=== PATIENT | male | born 1990 | race African-American/Black ===

== ENCOUNTER 2018-08-16 22:07 | Emergency (ER) | payer MEDICAID, SELFPAY ==
[2018-08-16 22:11] VITALS: BP 151/84; PULSE 103; RESP 20; TEMP 38.5; O2SAT 96
[2018-08-16 22:15] VITALS: RESP 18
--- NOTE | 2018-08-16 22:19 | DI.RAD_ITS ---
SYMPTOMS/DIAGNOSIS: COUGH PA AND LATERAL CHEST: No priors. The heart is normal in size. The lungs are clear. The mediastinal structures and pleura appear intact. CONCLUSION: Normal chest.
--- NOTE | 2018-08-16 22:22 | ED.GENADUL_ITS ---
Discharge Plan Disposition Patient Disposition: HOME Condition: Improving Discharge Details Chief Complaint: GenMedical Clinical Impression: Pneumonia Primary Care Provider: Dallin Quintana ED Provider: Nestor Li Home Meds and New Rx's Prescriptions: New cefdinir 300 mg capsule 300 mg PO Q12H 10 Days Qty: 20 RF: 0 Discharge Instructions Instructions: Pneumonia (ED) Additional Instructions: Please call your doctor's office to obtain a follow-up appointment for 7-10 days time. Take medications as prescribed with antibiotic administration beginning tomorrow morning Home to rest. Small, frequent sips of fluids to maintain hydration. May use Tylenol and/or ibuprofen as needed for discomfort. Return to the emergency department if you develop shortness of breath, or any other acute concerns Medical Decision Making 28-year-old male presents with 2 weeks of upper respiratory illness associated with cough, congestion, general malaise, fever and chills. He has had ear congestion with diminished hearing on the left as well as posttussive lower abdominal pain. He arrives with a temperature of 38.5, pulse 103. He has coarse rhonchi throughout his lung bang. Differential diagnosis includes pneumonia, bronchitis, post viral pneumonitis. Patient given 1 L fluid bolus, ketorolac, referred for laboratory testing and chest x-ray. He is given parenteral antibiotics in the emergency department. Patient's had some improvement with these interventions. His diagnostic studies reveal white blood cell count of 13, discrete low potassium of 3.3. Chest x-ray preliminarily read by radiology as unremarkable, I do feel that there is a developing left retrocardiac infiltrate Will place a course of oral antibiotics. He stable, improved, appropriate to be discharged home. Lab Data Lab results reviewed: Yes I reviewed the patient's lab results. Laboratory Results - last 24 hr 08/16/18 08/16/18 22:35 22:35 WBC 13.53 H RBC 4.75 Hgb 12.8 L Hct 36.6 L MCV 77.1 L MCH 26.9 L MCHC 35.0 RDW 13.6 Plt Count 247 MPV 9.7 Immature Gran % 0.3 Neutrophils % 70.7 Lymphocytes % 20.2 Monocytes % 7.9 Eosinophils % 0.7 Basophils % 0.2 Absolute Neutrophils 9.57 H Absolute Lymphocytes 2.73 Absolute Monocytes 1.07 H Absolute Eosinophils 0.09 Absolute Basophils 0.03 Sodium 138 Potassium 3.3 L Chloride 100 Carbon Dioxide 29.2 Anion Gap 8.8 BUN 10 Creatinine 1.02 Estimated GFR/1.73 m2 >= 60.00 Glucose 97 Calcium 9.4 HPI General Mode of arrival: ambulatory . Date/Time Provider Initiated Documentation: 08/16/18 22:11 . Limitations to Documentation: no limitations . Information obtained by: patient . History of Present Illness 28 year old M presents to the emergency department with the chief complaint of Cough, described as moderate, Quality is described as constant, and is localized to the chest. Patient reports no radiation. Patient started experiencing this day(s) and it has been constant. No relieving factors improve symptom(s), Other factors that worsen symptoms (Cough) . Patient notes cough, fever/chills, loss of appetite, malaise and other (Pain in lower abdomen with coughing. No persistent pain without coughing. Decreased hearing left). Patient did receive the following treatments prior to arrival, none Related Data Home Medications Medication Instructions Recorded Confirmed cefdinir 300 mg PO Q12H 10 Days #20 cap 08/16/18 Previous Rx's Medication Instructions Recorded cefdinir 300 mg PO Q12H 10 Days #20 cap 08/16/18 Allergies Allergy/AdvReac Type Severity Reaction Status Date / Time No Known Allergies Allergy Unverified 08/16/18 22:14 General Stated Complaint: GenMedical SERGIO: 3 Review of Systems Review of Systems 6 systems reviewed and otherwise negative PFSH Social History Smoking/Tobacco Use Status: Never Exam Narrative Exam Narrative: GEN: awake, alert, oriented 3. Pleasant, well groomed, interactive. HEAD: Normocephalic, atraumatic ENT: Mucous membranes moist, oropharynx unremarkable, External ear exam unremarkable EYES: PERRL, EOMI NECK: Full ROM, no VICK, no menigismus CHEST/RESP: Nontender, bilateral coarse rhonchi CARDIOVASCULAR: Regular and tachycardic, no murmur, rub roxy. 2+ Rad pulse bilateral ABDOMEN: Soft, nontender, no mass. +Bowel sounds EXT: Full ROM, no edema, no rash Neuro: Grossly normal neurologic exam, conversant, interactive. Psych: Speech fluent, thoughts congruent, affect normal Course Vital Signs Temperature 38.5 C H 08/16/18 22:11 Pulse 103 H 08/16/18 22:11 Respiratory Rate 20 08/16/18 22:11 Blood Pressure 151/84 H 08/16/18 22:11 Pulse Oximetry 96 08/16/18 22:11 Temperature 38.5 C H 08/16/18 22:11 Temperature Source Temporal Artery Scan 08/16/18 22:11 Pulse 103 H 08/16/18 22:11 Respiratory Rate 18 08/16/18 22:15 Respiratory Effort Non-Labored 08/16/18 22:15 Respiratory Depth Normal 08/16/18 22:15 Respiratory Pattern Normal 08/16/18 22:15 Blood Pressure 151/84 H 08/16/18 22:11 Pulse Oximetry 96 08/16/18 22:11 Oxygen Delivery Method Room Air 08/16/18 22:11 Oxygen Flow Rate 0 08/16/18 22:11 Pain Level 7 08/16/18 22:11
[2018-08-16] MEDS: Ketorolac 30 MG/ML VIAL IVP (22:25)
[2018-08-16 22:40] LABS: Abs Immature Grans 0.04 k/cumm (0.0-0.09); Absolute Basophil Count 0.03 k/cumm (0.0-0.2); Absolute Eosinophil Count 0.09 k/cumm (0.0-0.7); Absolute Lymphocyte Count 2.73 k/cumm (1.2-3.4); Absolute Monocyte Count 1.07 k/cumm (0.11-0.7); Absolute Neutrophil Count 9.57 k/cumm (1.2-6.7); Basophils % 0.2; Eosinophils % 0.7; HCT 36.6 % (40.0-50.0); HGB 12.8 g/dL (13.5-17.5); Immature Grans % 0.3; Lymphocytes % 20.2; Mean Corpuscular Hemoglobin 26.9 pg (27.0-33.0); Mean Corpuscular Volume 77.1 fL (80-95); Mean Platelet Volume 9.7 fL (8.0-11.0); Monocytes % 7.9; Neutrophils % 70.7; Platelet Count 247 x1000/uL (130-400); RBC 4.75 m/cumm (4.50-6.00); RBC Distribution Width 13.6 % (11.8-14.1); White Blood Cell Count 13.53 k/cumm (4.4-10.8)
[2018-08-16 22:47] LABS: Anion Gap 8.8 mmol/L (3-11); BUN 10 mg/dL (7-18); CO2 29.2 mmol/L (21.0-32.0); CREATININE 1.02 mg/dL (0.70-1.30); Calcium 9.4 mg/dL (8.5-10.1); Chloride 100 mmol/L (98-107); Glucose 97 mg/dL (70-100); Potassium 3.3 mmol/L (3.5-5.1); Sodium 138 mmol/L (136-145)
[2018-08-16] MEDS: Normal Saline 1,000 ML 1000 ML IV (22:54)
--- NOTE | 2018-08-16 23:16 | DI.VRAD_ITS ---
EXAM: XR Chest, 2 Views EXAM DATE/TIME: 08/16/2018 10:21 PM CLINICAL HISTORY: 28 years old, male; Signs and symptoms; Cough; Patient HX: Per PT: Cough 2 weeks TECHNIQUE: XR of the chest, 2 views. COMPARISON: No relevant prior studies available. FINDINGS: Lungs: Unremarkable. No consolidation. Pleural space: Unremarkable. No pleural effusion. No pneumothorax. Heart/Mediastinum: Unremarkable. No cardiomegaly. Bones/joints: Unremarkable. IMPRESSION: No acute findings. Dictated and Authenticated by: Kiran Najera MD. Ordering:ROSALINDA SANCHEZ MD
[2018-08-17 06:36] VITALS: BP 151/84; PULSE 103; RESP 18; TEMP 38.5; O2SAT 96
== END 2018-08-16 23:29 | disposition home or self-care (01) ==
LOC: ER 23:32
PROVIDERS: Emergency Provider Emergency Medicine; PCP Nurse Practitioner
DX: J18.9 Pneumonia, unspecified organism (principal); E87.6 Hypokalemia
CPT/HCPCS: 36415; 80048; 96365; 96374; 96375; 99284; 71046; 85025; J0696; J1885

== ENCOUNTER 2019-09-16 07:39 | Emergency (ER) | payer MEDICAID, SELFPAY ==
[2019-09-16 07:44] VITALS: BP 141/85; PULSE 110; RESP 18; TEMP 36.4; O2SAT 99
--- NOTE | 2019-09-16 07:51 | DI.RAD_ITS ---
EXAM: XR SHOULDER RT COMPLETE 2+V CLINICAL HISTORY: right shoulder pain TECHNIQUE: COMPARISON: No exams were available for comparison FINDINGS: Five views were obtained. No bony or soft tissue abnormality seen. IMPRESSION:
--- NOTE | 2019-09-16 07:51 | ED.GENADUL_ITS ---
Discharge Plan Disposition Patient Disposition: HOME Condition: Stable Discharge Details Chief Complaint: Orthopedic Clinical Impression: Pain in right shoulder Primary Care Provider: Marybeth Edwards ED Provider: Mauro Florence Home Meds and New Rx's Prescriptions: No Action No Known Home Meds RF: 0 Discharge Instructions Instructions: Shoulder Pain (ED) Additional Instructions: take 1000mg tylenol and 600mg ibuprofen every 6 hours for pain as needed take your arm out of the sling a few times a day to range your joints if still in pain in a week see your primary care provider return to the emergency department for fevers, swelling or severe worsening pain Medical Decision Making 29 yo male who denies chronic medical problems, denies alcohol or drug use, comes in with right shoulder pain. He states he went to bed feeling well and woke up with pain in the right shoulder with movement. Denies fevers, chills, falls, trauma, no chest pain or shortness of breath. He has pain with palpation to the anterior shoulder on the right with no visible deformity or palpable deformity and has intact distal sensation and pulses. Could be bursitis, no warmth or erythema to suggest septic joint. Will xray to eval for possible fx xray on my read and Dr. Amor from radiology negative for acute pathology. He is feeling better and only has pain with rom, I am able to passively fully range so odubt septic joint or psoterio shoulder dislocation. Suspect bursitis vs strain. Will place in sling and have him f/u with pcp, return precautions given Differential Diagnosis Differential Diagnosis: bursitis, fracture, dislocation Imaging Data Radiologic Study: Attestation: I personally reviewed and interpreted this imaging study as follows: Imaging: X-Ray Radiologist's impression: no acute findings HPI General Mode of arrival: ambulatory . Date/Time Provider Initiated Documentation: 09/16/19 07:48 . Limitations to Documentation: no limitations . Information obtained by: patient . History of Present Illness 29 year old M presents to the emergency department with the chief complaint of right shoulder pain, described as moderate, Quality is described as aching, Patient reports no radiation. Patient started experiencing this hour(s) (2) and it has been constant. No relieving factors improve symptom(s), No exacerbating factors reported . Patient did receive the following treatments prior to arrival, none Related Data Home Medications Medication Instructions Recorded Confirmed Unknown [No Known Home Meds] 09/16/19 09/16/19 Allergies Allergy/AdvReac Type Severity Reaction Status Date / Time No Known Allergies Allergy Unverified 09/16/19 07:47 General Stated Complaint: Orthopedic SERGIO: 3 Review of Systems All systems reviewed & are unremarkable except as noted in HPI and below Constitutional Constitutional: Denies chills, Denies fever(s) and Denies weakness Cardiovascular Cardiovascular: Denies chest pain and Denies dyspnea Respiratory Respiratory: Denies dyspnea Gastrointestinal Gastrointestinal: Denies abdominal pain, Denies nausea and Denies vomiting Musculoskeletal Musculoskeletal: Denies joint swelling Neurologic Neurologic: Denies weakness Endocrine Endocrine: Denies heat intolerance PFSH Social History Smoking/Tobacco Use Status: Never Drug use: Never Substance use type: does not use Do you feel safe in your relationship?: Yes Exam Const General: no acute distress Orientation: alert HENMT Head: normal to inspection Ears: external ears normal General nose exam: external nose normal Mouth: moist mucous membranes Eyes General: appearance normal, both eyes and all related structures Neck Neck: normal visual inspection Resp Effort & Inspection: normal respiratory effort and able to speak in complete sentences Cardio Rate: regular rate Skin General skin exam: no rashes or lesions noted Neuro General: alert and oriented x3 Extrem General: normal to inspection Psych Mental Status: mental status grossly normal Course Vital Signs Vital signs: Vital Signs Temperature 36.4 C L 09/16/19 07:44 Pulse 110 H 09/16/19 07:44 Respiratory Rate 18 09/16/19 07:44 Blood Pressure 141/85 H 09/16/19 07:44 Pulse Oximetry 99 09/16/19 07:44 Temperature 36.4 C L 09/16/19 07:44 Temperature Source Oral 09/16/19 07:44 Pulse 110 H 09/16/19 07:44 Respiratory Rate 18 09/16/19 07:44 Respiratory Effort 09/16/19 07:47 Blood Pressure 141/85 H 09/16/19 07:44 Blood Pressure Position Sitting 09/16/19 07:44 Pulse Oximetry 99 09/16/19 07:44 Oxygen Delivery Method Room Air 09/16/19 07:44 Oxygen Flow Rate 0 09/16/19 07:44 Pain Level 8 09/16/19 07:44
[2019-09-16] MEDS: Ibuprofen 600 MG TAB PO (07:57)
[2019-09-16 08:30] VITALS: BP 141/85; PULSE 110; RESP 18; TEMP 36.4; O2SAT 99
== END 2019-09-16 08:33 | disposition home or self-care (01) ==
PROVIDERS: Emergency Provider Emergency Medicine; PCP Nurse Practitioner Family
DX: M25.511 Pain in right shoulder (principal)
CPT/HCPCS: 99283; 73030; 99282; L3650

== ENCOUNTER 2021-01-10 09:53 | Outpatient (REF) | payer MEDICAID, SELFPAY ==
[2021-01-10 15:06] LABS: HCT 38.6 % (40.0-50.0); MCH 26.4 pg (27.0-33.0); MCHC 33.7 % (32.0-36.0); MCV 78.3 fL (80-95); Platelet Count 266 10^3/uL (130-400); RBC 4.93 10^6/uL (4.36-5.78); RDW 13.2 % (11.8-14.1); RDW-SD 37.5 fL; WBC 6.75 10^3/uL (4.4-10.8)
[2021-01-10 15:30] LABS: ALT 28 U/L (16-63); AST 24 U/L (15-37); Albumin 4.1 g/dL (3.4-5.0); Alkaline Phosphatase 79 U/L (46-116); Anion Gap 8.7 mmol/L (3-11); BUN 10 mg/dL (7-18); Bilirubin, Total 0.6 mg/dL (0.2-1.0); CO2 31.3 mmol/L (21.0-32.0); Calcium 9.5 mg/dL (8.5-10.1); Chloride 103 mmol/L (98-107); Glucose 92 mg/dL (74-106); Potassium 3.6 mmol/L (3.5-5.1); Sodium 143 mmol/L (136-145); Total Protein 8.6 g/dL (6.4-8.2)
== END 2021-01-10 09:54 | disposition home or self-care (01) ==
LOC: NCHCN 09:53
PROVIDERS: PCP Nurse Practitioner Family; Visit Provider Nurse Practitioner Family
DX: F41.8 Other specified anxiety disorders (principal); Z00.00 Encounter for general adult medical examination without abnormal findings
CPT/HCPCS: 80053; 85027

== ENCOUNTER 2023-12-23 21:49 | Emergency (ER) | payer MEDICAID, SELFPAY ==
[2023-12-23] VITALS (23 sets, daily range): BP systolic 128–174; BP diastolic 59–111; PULSE 93–123; RESP 14–22; TEMP 36.8–38.5; O2SAT 95–100
--- NOTE | 2023-12-23 21:45 | RT.EKG_ITS ---
APPROVED REPORT Exam: Resting ECG Reason for Exam: chest pain Patient Location: E HR:93 bpm ECG Measurements Heart Rate 93 AXIS MN 117 P 78 QRSd 97 QRS 54 QT 304 T 9 QTc 378 Conclusion Sinus rhythm at a rate of 93 with wandering leads, motion artifact change without acute ischemic jay ge.
[2023-12-23] MEDS: methylPREDNISolone SUCC 125 MG VIAL IVP (22:24)
[2023-12-23 22:25] LABS: Abs Immature Grans 0.07 10^3/uL (0.0-0.06); Absolute Basophil Count 0.04 10^3/uL (0.0-0.2); Absolute Eosinophil Count 0.13 10^3/uL (0.0-0.7); Absolute Monocyte Count 1.28 10^3/uL (0.1-0.8); Basophils % 0.3; Eosinophils % 0.9; HCT 35.4 % (40.0-50.0); HGB 11.8 g/dL (13.5-17.5); Immature Grans % 0.5; Lymphocytes % 16.8; MCH 24.4 pg (27.0-33.0); MCHC 33.3 % (32.0-36.0); MCV 73 fL (80-95); MPV 9.8 fL (8.0-11.0); Monocytes % 8.6; Neutrophils % 72.9; Platelet Count 245 10^3/uL (130-400); RBC 4.83 10^6/uL (4.36-5.78); RDW 13.4 % (11.8-14.1); RDW-SD 35.6 fL; WBC 14.91 10^3/uL (4.4-10.8)
[2023-12-23] MEDS: Normal Saline 1,000 ML 1000 ML IV (22:27)
[2023-12-23] MEDS: Ketorolac 15 MG/ML VIAL 7.5 MG IVP (22:27)
[2023-12-23] MEDS: Albuterol 2.5 MG/3 ML INH SOLN VIAL UPD (22:27)
[2023-12-23 22:38] LABS: Absolute Neutrophil Count 10.87 10^3/uL (1.2-6.7)
[2023-12-23 22:39] LABS: Diff Comment RBC Morph Reviewed; Hypochromasia 1+; Microcytosis 1+
[2023-12-23 22:41] LABS: Creatine Kinase 294 U/L (39-308); Lipase 32 U/L (16-77); Troponin I < 50 ng/L (< or =60)
--- NOTE | 2023-12-23 22:45 | DI.RAD_ITS ---
Exam(s) XR CHEST 2V PA LATERAL EXAM: XR CHEST 2V PA LATERAL CLINICAL HISTORY: chest pain and fever TECHNIQUE: 2D digital imaging was performed of the chest. Two images were obtained. PA and lateral views were obtained. COMPARISON: CR XR CHEST 2V PA LATERAL from 08/16/2018 FINDINGS: MEDIASTINUM: Normal. HEART: Normal. PULMONARY VASCULATURE: Normal. LUNGS: Clear. PLEURAL SPACE: No pleural effusion or pneumothorax. BONE:Within normal limits for the patient's age. OTHER FINDINGS:Normal. IMPRESSION: No acute pulmonary findings. DATA REPOSITORY: RADIATION DOSE DELIVERED:
[2023-12-23 22:49] LABS: ALT 34 U/L (16-63); AST 24 U/L (15-37); Albumin 3.8 g/dL (3.4-5.0); Alkaline Phosphatase 90 U/L (46-116); Anion Gap 8.2 mmol/L (3-11); BUN 11 mg/dL (7-18); Bilirubin, Total 0.5 mg/dL (0.2-1.0); CO2 29.8 mmol/L (21.0-32.0); CREATININE 1.1 mg/dL (0.70-1.30); Calcium 9.4 mg/dL (8.5-10.1); Chloride 102 mmol/L (98-107); Estimated GFR 89.78 (mL/min/1.73m2); Glucose 110 mg/dL (74-106); Potassium 3.7 mmol/L (3.5-5.1); Sodium 140 mmol/L (136-145); Total Protein 8.7 g/dL (6.4-8.2)
[2023-12-23] MEDS: ACETAMINOPHEN 1,000 MG/100 ML BTL 400 MG IVPB (22:50)
[2023-12-23 23:01] LABS: COVID-19 PCR Negative (Negative); Influenza A PCR Negative (Negative); Influenza B PCR Negative (Negative); RSV PCR Negative (Negative)
[2023-12-23 23:02] LABS: Source NASOPHARYNX
--- NOTE | 2023-12-23 23:36 | W.ED.GENAD ---
Discharge Plan Disposition Patient Disposition: Home Condition: Stable Discharge Details Clinical Impression: Acute viral syndrome, Chest pain Primary Care Provider: Unknown,Unknown ED Provider: Sussy Rosas Home Meds and New Rx's Prescriptions: No Action No Known Home Meds Discharge Instructions Instructions: Chest Pain (ED), Viral Syndrome (ED) Additional Instructions: Take ibuprofen 600 mg every 8 hours with food Take Tylenol 650 mg every 4-6 hours At least 8 ounce glasses of water daily Rest Please be reevaluated by your primary care physician in 24 to 48 hours and return earlier should you have new or worsening complaints Discharge Data Discharge Date/Time-TO BE ENTERED AT DEPARTURE: 12/24/23 02:03 HPI <ZULEMA Clark - Last Filed: 12/25/23 08:27> General Date/Time Provider Initiated Documentation: 12/23/23 21:51. HPI Narrative: This 33-year-old male presents with fever, chills, myalgias, chest pain, and shortness of breath. He denies any known sick contacts but does live with 3 kids and his . States his symptoms started 3 days ago with chest pain. He denies any localized pain to his calves. He denies any hemoptysis. He has had chills but has not taken his temperature. Denies exotic travel or rashes. Denies any urinary symptoms. Denies shortness of breath. Does not endorse any history of coagulopathy, recent flights, surgeries, long drives. Parents and siblings otherwise reportedly healthy. Does not smoke, drink, or use any illicit drugs. Related Data Home Medications Medication Instructions Recorded Confirmed Unknown [No Known Home Meds] 09/16/19 12/23/23 Allergies Allergy/AdvReac Type Severity Reaction Status Date / Time No Known Allergies Allergy Unverified 12/23/23 21:54 General Stated Complaint: Fever SERGIO: 3 Course <ZULEMA Clark - Last Filed: 12/25/23 08:27> Vital Signs Vital signs: Vital Signs Temperature 38.5 C H 12/23/23 21:55 Pulse 108 H 12/23/23 21:55 Respiratory Rate 18 12/23/23 21:55 Blood Pressure 168/101 H 12/23/23 21:55 Pulse Oximetry 95 12/23/23 21:55 Temperature 38.5 C H 12/23/23 21:55 Temperature Source Temporal Artery Scan 12/23/23 21:55 Pulse 108 H 12/23/23 21:55 Respiratory Rate 18 12/23/23 21:55 Respiratory Effort Normal, Non-Labored 12/23/23 21:57 Blood Pressure 168/101 H 12/23/23 21:55 Blood Pressure Position Sitting 12/23/23 21:55 Pulse Oximetry 95 12/23/23 21:55 Oxygen Delivery Method Room Air 12/23/23 21:55 Oxygen Flow Rate 0 12/23/23 21:55 Pain Level 9 12/23/23 21:55 Lab/Test Results Lab/Test Results: 12/23/23 23:14 Blood Blood Culture - Pending 12/23/23 23:14 Blood Blood Culture - Pending Laboratory Tests Range/Units 12/23/23 22:04 WBC (4.4-10.8) 10^3/uL 14.91 H RBC (4.36-5.78) 10^6/uL 4.83 Hgb (13.5-17.5) g/dL 11.8 L Hct (40.0-50.0) % 35.4 L MCV (80-95) fL 73 L MCH (27.0-33.0) pg 24.4 L MCHC (32.0-36.0) % 33.3 RDW (11.8-14.1) % 13.4 Plt Count (130-400) 10^3/uL 245 MPV (8.0-11.0) fL 9.8 Immature Gran % 0.5 Neutrophils % 72.9 Lymphocytes % 16.8 Monocytes % 8.6 Eosinophils % 0.9 Basophils % 0.3 Nucleated RBC % (0.0-0.3) % 0.0 Absolute Neutrophils (1.2-6.7) 10^3/uL 10.87 H Absolute Lymphocytes (1.2-3.4) 10^3/uL 2.50 Absolute Monocytes (0.1-0.8) 10^3/uL 1.28 H Absolute Eosinophils (0.0-0.7) 10^3/uL 0.13 Absolute Basophils (0.0-0.2) 10^3/uL 0.04 RBC Morphology See Below Hypochromasia 1+ Microcytosis 1+ Sodium (136-145) mmol/L 140 Potassium (3.5-5.1) mmol/L 3.7 Chloride (98-107) mmol/L 102 Carbon Dioxide (21.0-32.0) mmol/L 29.8 Anion Gap (3-11) mmol/L 8.2 BUN (7-18) mg/dL 11 Creatinine (0.70-1.30) mg/dL 1.1 Est GFR (CKD-EPI 2020) (mL/min/1.73m2) 89.78 Glucose (74-106) mg/dL 110 H Calcium (8.5-10.1) mg/dL 9.4 Total Bilirubin (0.2-1.0) mg/dL 0.5 AST (15-37) U/L 24 ALT (16-63) U/L 34 Alkaline Phosphatase (46-116) U/L 90 Creatine Kinase (39-308) U/L 294 Troponin I (< or =60) ng/L < 50 Total Protein (6.4-8.2) g/dL 8.7 H Albumin (3.4-5.0) g/dL 3.8 Lipase (16-77) U/L 32 COVID-19 Source NASOPHARYNX SARS-CoV-2 (PCR) (Negative) Negative Influenza Type A (PCR) (Negative) Negative Influenza Type B (PCR) (Negative) Negative RSV (PCR) (Negative) Negative Medical Decision Making <ZULEMA Clark - Last Filed: 12/25/23 08:27> This 33-year-old male presents with report of fever, chills, chest pain, cough Patient appears well, vitals are stable, he is febrile at 38.5, initially patient with myalgias and flulike symptoms so surgery was ordered, this is negative so I will order chest x-ray, blood cultures, lactate, white count of 14,000, urinalysis pending Patient alert, oriented, no signs of meningismus, no rashes or lesions, reproducible chest wall pain, initial troponin negative, CPK negative, will order repeat EKG secondary to onset of sinus tachycardia or suspected sinus tachycardia after albuterol administration, patient did not have much relief with this I suspect this is a viral syndrome but will also order D-dimer secondary to tachycardia and chest pain, care will be transitioned to Dr. Ifrah Álvarez pending repeat troponin at 0100, D-dimer, chest x-ray versus CT scan, urinalysis, second liter of IV fluids, and reassessments Patient has remained quite stable in appearance throughout this encounter and I suspect the tachycardia is related to the albuterol as a started this albuterol administration, I do not think patient would benefit from albuterol at home Quality:[facility] Health Related Social Needs: No Data to Display <Hellen Álvarez, - Last Filed: 12/24/23 02:00> This 33-year-old male presents with report of fever, chills, chest pain, cough Patient appears well, vitals are stable, he is febrile at 38.5, initially patient with myalgias and flulike symptoms so surgery was ordered, this is negative so I will order chest x-ray, blood cultures, lactate, white count of 14,000, urinalysis pending Patient alert, oriented, no signs of meningismus, no rashes or lesions, reproducible chest wall pain, initial troponin negative, CPK negative, will order repeat EKG secondary to onset of sinus tachycardia or suspected sinus tachycardia after albuterol administration, patient did not have much relief with this I suspect this is a viral syndrome but will also order D-dimer secondary to tachycardia and chest pain, care will be transitioned to Dr. Ifrah Álvarez pending repeat troponin at 0100, D-dimer, chest x-ray versus CT scan, urinalysis, second liter of IV fluids, and reassessments Patient has remained quite stable in appearance throughout this encounter and I suspect the tachycardia is related to the albuterol as a started this albuterol administration, I do not think patient would benefit from albuterol at home I received signout regarding this patient. We were awaiting blood work result at this point. Lactic acid is back and is within normal limits. D-dimer is likewise within normal limits. Repeat troponin is likewise resulted and it continues to be unremarkable. The patient's fever in the meantime has since resolved. Patient now feels very hot versus cold and chilled. Tachycardia has also resolved. I have updated the patient on workup result and of plan for discharge. I suspect the patient has a viral illness causing his symptoms. At this point I told the plan for discharge. He is encouraged to continue Tylenol and ibuprofen back to back, follow-up with his primary care doctor and return to the emergency department with any worsening symptoms or any other concerns. Chest x-ray had been done also which showed as interpreted by virtual radiology: No acute thoracic process. PFSH <ZULEMA Clark - Last Filed: 12/25/23 08:27> All Active Problems (Updated 12/23/23 @ 23:51 by ZULEMA Clark) Chest pain (Acute) Acute viral syndrome (Acute) Social History Smoking/Tobacco Use Status: Never Smoking risk assessment performed?: Yes Alcohol Intake: never Drug use: Never Substance use type: does not use Housing: house Do you feel safe at home: Yes Do you feel safe in your relationship?: Yes
--- NOTE | 2023-12-23 23:45 | RT.EKG_ITS ---
APPROVED REPORT Exam: Resting ECG Reason for Exam: cp Patient Location: E HR:115 bpm ECG Measurements Heart Rate 115 AXIS [place] 109 P 83 QRSd 105 QRS 55 QT 298 T -81 QTc 412 Conclusion Sinus tachycardia at a rate of 115 without acute ischemic change
[2023-12-23 23:46] LABS: Lactate 1.4 mmol/L (0.6-1.4)
[2023-12-24] VITALS (21 sets, daily range): BP systolic 118–146; BP diastolic 64–90; PULSE 88–114; RESP 11–20; O2SAT 95–98
[2023-12-24 00:17] LABS: D-Dimer 498 ng/mlFEU (<500)
--- NOTE | 2023-12-24 00:52 | DI.VRAD_ITS ---
PROCEDURE INFORMATION: Exam: XR Chest Exam date and time: 12/24/2023 12:12 AM Age: 33 years old Clinical indication: Left-sided; Patient HX: Chest pain and fever TECHNIQUE: Imaging protocol: Radiologic exam of the chest. Views: 2 views. COMPARISON: CR XR CHEST 2V PA LATERAL 08/16/2018 10:38 PM FINDINGS: Lungs: Normal pulmonary expansion. Pulmonary vasculature grossly normal. No gross pulmonary infiltrates or edema pattern. Pleural spaces: No pleural effusion. No pneumothorax. Heart/Mediastinum: Heart size normal. No tracheal/mediastinal shift. Bones/joints: No acute osseous abnormalities are identified. IMPRESSION: No acute thoracic process. Dictated and Authenticated by: Dallin Mota MD. Ordering:HUMBERTO Hi MD
[2023-12-24 01:43] LABS: Troponin I < 50 ng/L (< or =60)
== END 2023-12-24 02:03 | disposition home or self-care (01) ==
PROVIDERS: Emergency Provider Physician Assistant
DX: B34.9 Viral infection, unspecified (principal); R07.9 Chest pain, unspecified; Z11.52 Encounter for screening for COVID-19
CPT/HCPCS: 36410; 80053; 82550; 83690; 87040; 87637; 93005; 96361; 96374; 96375; 99285; 71046; 83605; 84484; 85025; 85379; 93010; 99284; J0131; J1885; J2930; J7613

== ENCOUNTER 2024-04-04 00:27 | Emergency (ER) | payer MEDICAID, SELFPAY ==
[2024-04-04 00:34] VITALS: BP 158/93; PULSE 75; RESP 14; TEMP 36.7; O2SAT 98
[2024-04-04] MEDS: Acetaminophen 500 MG TAB 1000 MG PO (00:43)
[2024-04-04] MEDS: Ketorolac 15 MG/ML VIAL IM (00:43)
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
== END 2024-04-04 03:50 | disposition home or self-care (01) ==
PROVIDERS: Emergency Provider Student in an Organized Health Care Education/Training Program
DX: S93.401A Sprain of unspecified ligament of right ankle, initial encounter (principal); V86.79XA Person on outside of other special all-terrain or other off-road motor vehicles injured in nontraffic accident, initial encounter
CPT/HCPCS: 96372; 99284; 73590; 73610; 73630; 73700; J1885

== ENCOUNTER 2024-06-04 01:53 | Outpatient (CLI) | payer MEDICAID, SELFPAY ==
--- NOTE | 2024-06-04 | ETT_ITS ---
APPROVED REPORT Exam: Exercise Treadmill Patient Location: Out-Patient Room/Bed: Stress Nurse: Esmer Batista Ordering Provider:OSWALD KIM, Contact Number: [phone] BMI: 26.65 Baseline Rhythm: Sinus Rhythm Indications: chest pain Medical History Medical History: anxiety, insomnia, erectile dysfunction Cardiac Medications: prazosin Allergies: shellfish Cardiac Risk Factors: none Previous Cardiac Procedures: none Pretest Chest Pain Characteristics: No chest pain Exercise History: Sedentary Physical Disabilities: none Lung Sounds: Clear to auscultation Heart Sounds: Regular Stress Test Details Test: Exercise stress testing was performed using a Ramiro protocol. Rest Stress HR Resting HR Supine: 80 bpm Max Heart Rate (APMHR): 184 bpm Resting HR Standin bpm Target HR (85% APMHR): 156 bpm Max HR Achieved: 171 bpm % of APMHR: 93 Recovery HR: 91 bpm HR response to stress: Accelerated HR response to stress BP Resting BP Supine: 130/92 mmHg Resting BP Standin/92 mmHg Max BP: 158/98 mmHg Recovery BP: 130/88 mmHg BP response to stress: Normal blood pressure response to stress. ECG Resting ECG: Sinus Rhythm Ectopy: none Stress ECG: Sinus Tachycardia ST Change: Horizontal ST depression, Downsloping ST depression Lead(s): Diffuse Stage: [address] Deviation: 1-3 mm Arrhythmia: None Recovery ECG: Sinus Rhythm Recovery ST Change: Horizontal ST depression, Downsloping ST depression Lead(s): Diffuse Recovery ST Deviation: 1-3 mm Comment: ST depressions back to baseline at end of test. Clinical Reason for Termination: Target HR Achieved Stress Symptoms: None reported Exercise duration: 04 min59 sec Highest Stage Reached: Stage 2: 2.5 mph at 12% grade. Exercise capacity: 7.05 METs Angina Score: None Austin Treadmill Score: 2.0 Rate Pressure Product: 20475 Stress ECG Conclusion 1. Resting electrocardiogram showed borderline short PA interval 2. Patient exercised on the Ramiro protocol and completed a workload of 7 METS 3. Rapid heart rate response with exercise suggest deconditioning. Normal blood pressure response to exercise. Patient achieved 93% of predicted heart rate for age 4. There were no symptoms to suggest angina 5. Electrocardiographically there was ST depression/scooping in the inferior and anterolateral leads 6. Suggest repeat with imaging if clinically indicated Austin Treadmill Score is 2.0 which is Moderate risk. Stress Test Summary STAGE Time (mins) Speed (mph) Grade (%) HR BP SpO2 SYMPTOMS METS Supine 80 130/92 Standing 82 134/92 96 1 3 1.7 10 132 158/98 4.5 2 6 2.5 12 171 7 1 min recovery 140 154/86 3 min recovery 94 148/86 6 min recovery 90 130/88 Patient noted to have horizontal and downsloping ST depressions at stages 1, 2 and in recovery. Patie nt denied any symptoms throughout test. ST depressions back to baseline at end of test. Patient left ambulatory in no apparent distress.
== END 2024-06-04 02:13 ==
LOC: DI 01:53
PROVIDERS: Visit Provider Student in an Organized Health Care Education/Training Program
DX: R07.9 Chest pain, unspecified (principal); I44.0 Atrioventricular block, first degree
CPT/HCPCS: 93017

== ENCOUNTER 2024-06-18 01:00 | Outpatient (CLI) | payer MEDICAID, SELFPAY ==
--- NOTE | 2024-06-18 | DI.NM_ITS ---
APPROVED REPORT Exam: Exercise Treadmill Patient Location: Out-Patient Room/Bed: Stress Nurse: Yazmin Batista RN; Agueda Dumont RN Ordering Provider:OSWALD KIM, Contact Number: [phone] BMI: 24.82 Baseline Rhythm: Sinus Rhythm Indications: abnormal treadmill ECG 06/04/24 Medical History Medical History: anxiety, sleep disorder, chest pain Cardiac Medications: prazosin Allergies: shellfish Cardiac Risk Factors: none Previous Cardiac Procedures: none Pretest Chest Pain Characteristics: No chest pain Exercise History: Indeterminate Physical Disabilities: none Lung Sounds: Clear to auscultation Heart Sounds: Regular Stress Test Details Test: Exercise stress testing was performed using a Ramiro protocol. Nuclear Acquisition: Rest Tc-99m/Stress Tc-99m 1 day Rest Isotope: Tc-99m Sestamibi. Dose: 10.0 Date: 06/18/2024 Injection Time: 0930 Stress Isotope: Tc-99m Sestamibi. Dose: 30.0 Date: 06/18/2024 Injection Time: 1112 HR Resting HR Supine: 69 bpm Max Heart Rate (APMHR): 184.418825 bpm Resting HR Standin bpm Target HR (85% APMHR): 156.347617 bpm Max HR Achieved: 174 bpm % of APMHR: 94.57 Recovery HR: 87 bpm HR response to stress: Normal HR response to stress BP Resting BP Supine: 130/100 mmHg Resting BP Standin/100 mmHg Max BP: 170/92 mmHg Recovery BP: 136/84 mmHg BP response to stress: Normal blood pressure response to stress. ECG Resting ECG: Sinus Rhythm Ectopy: none Stress ECG: Sinus Tachycardia ST Change: Horizontal ST depression, Downsloping ST depression Lead(s): diffuse Stage: 1,2,[address] Deviation: 4 mm Arrhythmia: None Recovery ECG: Sinus Rhythm Recovery ST Change: Downsloping ST depression, Horizontal ST depression Lead(s): diffuse Recovery ST Deviation: 1-4 mm Recovery Arrhythmia: None Comment: ST depression back to baseline at end of test, patient asymptomatic Clinical Reason for Termination: Target HR Achieved Stress Symptoms: none Exercise duration: 06 min59 sec Highest Stage Reached: Stage 3: 3.4 mph at 14% grade. Exercise capacity: 8.22 METs Angina Score: None Austin Treadmill Score: -14.0 Rate Pressure Product: 91330 Stress ECG Conclusion 1. Resting electrocardiogram showed a short VT interval 2. Patient exercised on the Ramiro protocol and completed workload of 8.22 METS 3. Normal heart rate and blood pressure response to exercise. The patient achieved 95% of predicted heart rate for age 4. There were no symptoms to suggest angina 5. The electrocardiographic portion of the test was consistent with myocardial ischemia 6. There were no dysrhythmias 7. See MPI report Austin Treadmill Score is -14.0 which is High risk. Stress Test Summary STAGE Time (mins) Speed (mph) Grade (%) HR BP SpO2 SYMPTOMS METS Supine 69 130/100 Standing 69 138/100 1 3 1.7 10 121 148/98 4.5 2 6 2.5 12 160 170/92 7 3 9 3.4 14 174 10 1 min recovery 141 152/70 3 min recovery 92 150/90 98 6 min recovery 89 134/84 9 min recovery 89 134/92 12 min recovery 87 136/84 ST depressions returned to baseline at test end, pt denied sypmtoms. Pt left ambulatory in no acute d istress. MPI Conclusion Myocardial perfusion is normal. There is no ischemia or evidence of prior infarction EF is calculated at 39% but appears normal with normal wall motion Radiologist Interpretation Radiologist agrees with Uniform Attendant's Interpretation. Radiologist Interpretation by: Ro Elaine MD Interpretation Date/Time: 06/18/2024 15:56:33
== END 2024-06-18 01:20 ==
LOC: DI 01:00
PROVIDERS: PCP Student in an Organized Health Care Education/Training Program; Visit Provider Student in an Organized Health Care Education/Training Program
DX: R94.39 Abnormal result of other cardiovascular function study (principal)
CPT/HCPCS: 78452; 93017

== ENCOUNTER 2024-06-26 01:27 | Outpatient (CLI) | payer MEDICAID, SELFPAY ==
[2024-06-26 14:54] LABS: HCT 35.7 % (40.0-50.0); HGB 11.8 g/dL (13.5-17.5); MCH 24.5 pg (27.0-33.0); MCHC 33.1 % (32.0-36.0); MCV 74 fL (80-95); MPV 9.7 fL (8.0-11.0); Platelet Count 253 10^3/uL (130-400); RBC 4.82 10^6/uL (4.36-5.78); RDW 13.9 % (11.8-14.1); RDW-SD 37.2 fL; WBC 5.81 10^3/uL (4.4-10.8)
[2024-06-26 15:00] LABS: ESR 14 mm/hr (0-15)
[2024-06-26 15:05] LABS: Hemoglobin A1C 5.7 % (<5.7)
[2024-06-26 15:34] LABS: ALT 33 U/L (16-63); AST 25 U/L (15-37); Albumin 3.9 g/dL (3.4-5.0); Alkaline Phosphatase 78 U/L (46-116); Anion Gap 6.1 mmol/L (3-11); BUN 10 mg/dL (7-18); Bilirubin, Total 0.34 mg/dL (0.2-1.0); CO2 27.9 mmol/L (21.0-32.0); CREATININE 0.9 mg/dL (0.70-1.30); Calcium 9.1 mg/dL (8.5-10.1); Calculated LDL 213 mg/dL (<100); Chloride 106 mmol/L (98-107); Cholesterol 293 mg/dL (<200); Estimated GFR 113.51 (mL/min/1.73m2); Glucose 88 mg/dL (74-106); HDL Cholesterol 50 mg/dL (40-60); Potassium 3.9 mmol/L (3.5-5.1); Sodium 140 mmol/L (136-145); Total Protein 8.3 g/dL (6.4-8.2); Triglyceride 154 mg/dL (<150)
[2024-06-26 17:07] LABS: C-Reactive Protein < 0.50 mg/dL (<or=0.5)
== END 2024-06-26 01:28 | disposition home or self-care (01) ==
LOC: LBO 01:27
PROVIDERS: PCP Student in an Organized Health Care Education/Training Program; Visit Provider Student in an Organized Health Care Education/Training Program
DX: R94.39 Abnormal result of other cardiovascular function study (principal); F41.9 Anxiety disorder, unspecified; Z13.220 Encounter for screening for lipoid disorders; Z13.1 Encounter for screening for diabetes mellitus
CPT/HCPCS: 36415; 80053; 80061; 85027; 85652; 83036; 84443; 86140

== ENCOUNTER 2024-07-15 02:29 | Outpatient (CLI) | payer MEDICAID, SELFPAY ==
[2024-07-15 16:04] LABS: Iron 22 ug/dL (65-175); Total Iron Binding Capacity 379 ug/dL (250-450); Transferrin Sat 6 % (20-55)
[2024-07-15 16:36] LABS: Ferritin 18 ng/mL (26-388); Folate 15.2 ng/mL (8.6-20.0); Vitamin B12 332 pg/mL (193-986)
[2024-07-15 17:01] LABS: Creatine Kinase 276 U/L (39-308)
== END 2024-07-15 02:30 | disposition home or self-care (01) ==
LOC: LBO 02:29
PROVIDERS: PCP Student in an Organized Health Care Education/Training Program; Visit Provider Student in an Organized Health Care Education/Training Program
DX: D64.9 Anemia, unspecified (principal)
CPT/HCPCS: 36415; 82550; 82607; 82728; 82746; 83540; 83550; 85045

== ENCOUNTER 2024-09-24 15:59 | Outpatient (CLI) | payer SELFPAY ==
[2024-09-24 14:55] LABS: Abs Immature Grans 0.01 10^3/uL (0.0-0.06); Absolute Basophil Count 0.03 10^3/uL (0.0-0.2); Absolute Eosinophil Count 0.13 10^3/uL (0.0-0.7); Absolute Lymphocyte Count 2.68 10^3/uL (1.2-3.4); Absolute Monocyte Count 0.43 10^3/uL (0.1-0.8); Absolute Neutrophil Count 3.32 10^3/uL (1.2-6.7); Basophils % 0.5 %; HCT 35.6 % (40.0-50.0); HGB 11.6 g/dL (13.5-17.5); Immature Grans % 0.2 %; Lymphocytes % 40.6 %; MCHC 32.6 % (32.0-36.0); MCV 74 fL (80-95); MPV 9.2 fL (8.0-11.0); Monocytes % 6.5 %; Neutrophils % 50.2 %; Platelet Count 291 10^3/uL (130-400); RBC 4.83 10^6/uL (4.36-5.78); RDW 13.9 % (11.8-14.1); RDW-SD 37.2 fL
[2024-09-24 15:10] LABS: Diff Comment RBC Morph Reviewed; Hypochromasia 1+; Microcytosis 1+
[2024-09-24 15:26] LABS: Ferritin 14 ng/mL (26-388)
[2024-09-29 10:49] LABS: TSH (W/Ref FT4) 0.62 uIU/mL (0.36-3.74)
== END 2024-09-24 16:00 | disposition home or self-care (01) ==
LOC: LBO 16:00
PROVIDERS: PCP Student in an Organized Health Care Education/Training Program; Visit Provider Surgery
DX: E61.1 Iron deficiency
CPT/HCPCS: 36415; 82728; 84443; 85025

== ENCOUNTER 2024-10-02 15:22 | Outpatient (CLI) | payer SELFPAY ==
[2024-10-02 16:26] LABS: LDH 209 U/L (85-227)
[2024-10-04 21:15] LABS: Hemoglobin S Screen Negative (Negative)
[2024-10-05 12:47] LABS: Haptoglobin <7 mg/dL (32-197)
== END 2024-10-02 15:23 | disposition home or self-care (01) ==
LOC: LBO 15:24
PROVIDERS: PCP Student in an Organized Health Care Education/Training Program; Visit Provider Surgery
DX: D50.9 Iron deficiency anemia, unspecified (principal); E61.1 Iron deficiency
CPT/HCPCS: 36415; 86880; 83010; 83615; 85660

== ENCOUNTER 2025-09-10 21:40 | Emergency (ER) | payer OTHER, SELFPAY ==
[2025-09-10 21:41] VITALS: BP 168/105; PULSE 92; RESP 18; TEMP 36.9; O2SAT 96
--- NOTE | 2025-09-10 22:01 | W.ED.GENAD ---
Discharge Plan Disposition Patient Disposition: Home Discharge Details Clinical Impression: Acute left-sided low back pain with sciatica Primary Care Provider: Bruno De Jesus ED Provider: Tae Ramos Home Meds and New Rx's Prescriptions: New acetaminophen [Tylenol] 325 mg tablet 975 mg PO ONCE PRNQty: 60 0RF ibuprofen 600 mg tablet 600 mg PO Q6H PRNQty: 30 0RF prednisone 20 mg tablet 20 mg PO DAILY Qty: 3 0RF lidocaine [Lidoderm] 5 % adhesive patch,medicated 1 patch topical DAILY Qty: 15 0RF Rx Instructions: leave on most painful area for up to 12 hrs No Action ferrous sulfate 15 mg iron (75 mg)/mL drops 1 ml PO BID 30 Days Qty: 60 3RF prazosin 1 mg capsule 1 mg PO QHS Discharge Instructions Instructions: Sciatica (DC), Sciatica Exercises Additional Instructions: As discussed, your physical exam and history today is most consistent with sciatica, which is a compression of the peripheral nerve leading to pain in the lower back and legs. As we discussed though anytime someone presents the emergency department for lower back pain we are considering if the spinal cord may be involved. Tonight I do not find any evidence on your physical exam that this is the case however if you develop worsening pain, numbness, weakness inability to urinate, loss of control of your bowel or bladder please seek emergent evaluation as this may represent an injury to your spinal cord that may need emergent surgery to correct. Please treat your symptoms with the prescribed medications, you have been referred to physical therapy as this has been shown to significantly improve symptoms and decrease relapses. Please follow-up with your primary care provider regarding your visit to the emergency department today. Stand Alone Forms: Portal Information HPI General Date/Time Provider Initiated Documentation: 09/10/25 21:41. HPI Narrative: MDM/Narrative: 35-year-old male presents for evaluation of left-sided sciatica beginning this morning. Vital signs notable for mild hypertension. Physical exam without focal neurologic deficit normal deep tendon reflexes on lower extremities. Low suspicion for cauda equina given patient's lack of focal neurologic deficits or complaints. Will trial patient on Tylenol, NSAIDs, lidoderm, Flexeril, prednisone, and refer to physical therapy. I reviewed the signs and symptoms of cauda equina with the patient she does symptoms progress. He understands that if he develops numbness, weakness, changes in bowel or bladder or severe pain that he should seek emergency evaluation. Disposition: Home HPI: 35-year-old male presents for left-sided lower back pain, radiating to the left lower extremity which began this morning after the patient sneezed and throughout his back. Patient denies any urinary retention, loss of control of bowel or bladder, saddle anesthesia, numbness or weakness in the leg. He does note some movements of the left lower extremity are limited due to pain. ROS: Negative besides as mentioned above Exam: Gen: A&O NAD, HEENT: NCAT, EOMI, not icteric. External ears normal. No rhinorrhea. Moist mucous membranes. Neck: Supple, full range of motion, no observable masses, No meningeal sign. Lungs: No Respiratory distress. CV: RRR, no edema. Abdomen: Soft, nondistended, No rebound tenderness. MSK: No joint swelling, no redness. Spine: No palpable step-offs or bony tenderness to palpation over the cervical thoracic or lumbar spine. There is left lateral lower back tenderness to palpation most exquisitely over the left sciatic notch Skin: No rashes, petechiae, lesions. Normal color per patient. Neuro: Antalgic gait, motor strength is normal throughout the right lower extremity, left lower extremity shows 5 - of 5 motor strength in hip flexion/extension, knee flexion and knee extension. 5 out of 5 in ankle dorsi and plantarflexion. Deep tendon reflexes at the patellar and ankle jerks are 2+ and symmetric bilaterally. Sensation light touch intact throughout the lower extremities. Psych: Appropriate for situation. Appears uncomfortable Related Data Home Medications Medication Instructions Recorded Confirmed prazosin 1 mg capsule 1 mg PO QHS 08/13/24 09/10/25 ferrous sulfate 15 mg iron (75 1 ml PO BID 30 days #60 mL 09/24/24 09/10/25 mg)/mL oral drops acetaminophen 325 mg tablet 975 mg (3 x 325 mg) PO ONCE PRN 09/10/25 (Tylenol) #60 tabs ibuprofen 600 mg tablet 600 mg PO Q6H PRN #30 tabs 09/10/25 lidocaine 5 % topical patch 1 patch topical DAILY #15 ea 09/10/25 (Lidoderm) prednisone 20 mg tablet 20 mg PO DAILY #3 tabs 09/10/25 Previous Rx's Medication Instructions Recorded ferrous sulfate 15 mg iron (75 1 ml PO BID 30 days #60 mL 09/24/24 mg)/mL oral drops acetaminophen 325 mg tablet 975 mg (3 x 325 mg) PO ONCE PRN 09/10/25 (Tylenol) #60 tabs ibuprofen 600 mg tablet 600 mg PO Q6H PRN #30 tabs 09/10/25 lidocaine 5 % topical patch 1 patch topical DAILY #15 ea 09/10/25 (Lidoderm) prednisone 20 mg tablet 20 mg PO DAILY #3 tabs 09/10/25 Allergies Allergy/AdvReac Type Severity Reaction Status Date / Time sea food Allergy Severe Anaphylaxis Uncoded 09/10/25 21:44 General Stated Complaint: Orthopedic SERGIO: 4 Course Vital Signs Vital signs: Vital Signs Temperature 36.9 C 09/10/25 21:41 Pulse 92 H 09/10/25 21:41 Respiratory Rate 18 09/10/25 21:41 Blood Pressure 168/105 H 09/10/25 21:41 Pulse Oximetry 96 09/10/25 21:41 Temperature 36.9 C 09/10/25 21:41 Temperature Source Tympanic 09/10/25 21:41 Pulse 92 H 09/10/25 21:41 Respiratory Rate 18 09/10/25 21:41 Blood Pressure 168/105 H 09/10/25 21:41 Pulse Oximetry 96 09/10/25 21:41 Oxygen Delivery Method Room Air 09/10/25 21:41 Oxygen Flow Rate 0 09/10/25 21:41 Pain Level 8 09/10/25 21:41 PFSH All Active Problems (Updated 09/10/25 @ 22:08 by Tae Ramos MD) Acute left-sided low back pain with sciatica (Acute) Iron deficiency (Acute) Microcytic anemia (Acute) Medical History (Updated 09/10/25 @ 22:08 by Tae Ramos MD) Snoring Sleep disorder Insomnia Erectile dysfunction Nightmare disorder Social History Smoking/Tobacco Use Status: Never Smoking risk assessment performed?: Yes Alcohol Intake: never Drug use: Never Substance use type: does not use Housing: house Do you feel safe at home: Yes Do you feel safe in your relationship?: Yes
[2025-09-10] MEDS: Lidocaine 5% Patch 1 PATCH TP (22:02)
[2025-09-10] MEDS: Ketorolac 15 MG/ML VIAL IM (22:02)
[2025-09-10] MEDS: Acetaminophen 500 MG TAB 1000 MG PO (22:04)
[2025-09-10] MEDS: Cyclobenzaprine 10 MG TAB, 3 TABS/BTL PO (22:07)
[2025-09-10] MEDS: predniSONE 20 MG TAB 40 MG PO (22:08)
== END 2025-09-10 22:18 | disposition home or self-care (01) ==
LOC: ER 22:23
PROVIDERS: Emergency Provider General Practice; PCP Student in an Organized Health Care Education/Training Program
DX: R03.0 Elevated blood-pressure reading, without diagnosis of hypertension; M54.42 Lumbago with sciatica, left side
CPT/HCPCS: 99283; 99284; 96372; J1885; J7512